=== PATIENT | female | born 1950 | race Caucasian/White ===

== ENCOUNTER 2022-12-08 18:04 | Emergency (ER) | payer MEDICARE, OTHER, SELFPAY ==
[2022-12-08 18:06] VITALS: BP 218/69; PULSE 63; RESP 14; TEMP 36.3; O2SAT 100; BMI 31.8
--- NOTE | 2022-12-08 18:39 | EX.ED.UPPERE ---
HPI History of Present Illness Chief Complaint: Laceration Informant: patient Narrative Narrative: [id number] female presents with mandolin injury to the fourth and fifth digits right hand. On baby aspirin. Tetanus at 9 years. Bleeding controlled with pressure. No other injuries. Tetanus Immunization: >[address] [facility] Medical History (Updated 12/08/22 @ 20:[address] Caleb Mercer, DO) Diabetes HTN (hypertension) Hyperlipemia Home Medications albuterol sulfate 90 mcg/actuation aerosol inhaler (Ventolin HFA) 2 puff inhalation Q6H PRN PRN Wheezing 12/02/13 [History Last Taken 12/02/13] aspirin 81 mg chewable tablet 162 mg PO DAILY 12/02/13 [History Last Taken 01/09/17] atorvastatin 20 mg tablet 80 mg PO QHS 12/02/13 [History Last Taken 06/29/16] calcipotriene-betamethasone 0.005 %-0.064 % topical suspension (Taclonex) 1 applic TP PRN PRN Itching 12/02/13 [History Last Taken Unknown] clobetasol-emollient 0.05 % topical cream 1 applic TP PRN PRN Itching 12/02/13 [History Last Taken Unknown] esomeprazole magnesium 40 mg capsule,delayed release (Nexium) 40 mg PO DAILY 12/02/13 [History Last Taken 01/09/17] loratadine 10 mg tablet (Allergy Relief (loratadine)) 10 mg PO DAILY 12/02/13 [History Last Taken 12/03/13] metoprolol tartrate 25 mg tablet 25 mg PO BID 12/02/13 [History Last Taken 01/09/17] nitroglycerin 0.4 mg sublingual tablet 0.4 mg sublingual Q5M PRN Chest Pain 12/02/13 [History Last Taken Unknown] tolterodine 4 mg capsule,extended release 24 hr 4 mg PO DAILY 12/02/13 [History Last Taken 12/02/13] alendronate 70 mg tablet 70 mg PO ESPITIA 06/30/16 [History Last Taken Unknown] calcium carbonate 500 mg-vitamin D3 10 mcg (400 unit) chewable tablet (Calcium 500 + D) 1 ea PO TID 06/30/16 [History Last Taken Unknown] ramipril 2.5 mg capsule 2.5 mg PO QHS 06/30/16 [History Last Taken 06/30/16] cholecalciferol (vitamin D3) 1,250 mcg (50,000 unit) capsule 50,000 unit PO UD 08/18/16 [History Last Taken Unknown] metformin 750 mg tablet,extended release 24 hr 1,500 mg PO DAILY 08/18/16 [History Last Taken Unknown] nystatin 100,000 unit/gram topical ointment 1 applic topical BID 01/06/17 [History Last Taken Unknown] Allergy/AdvReac Type Severity Reaction Status Date / Time erythromycin base Allergy Abd Verified 12/08/22 18:06 [Erythromycin Base] cramps/diarrhea lisinopril Allergy Other Verified 12/08/22 18:06 minocycline HCl Allergy Other Verified 12/08/22 18:06 [From Minocin] naproxen sodium [From Aleve] Allergy Rash Verified 12/08/22 18:06 Penicillins Allergy Rash Verified 12/08/22 18:06 Sulfa (Sulfonamide Allergy Other Verified 12/08/22 18:06 Antibiotics) Social History Smoking Status: Former smoker ROS ROS ED Constitutional Constitutional ED: Denies chills, fever(s) or sweats Eyes Eyes: Denies change in vision ENT ENT ED: Denies dysphagia or sore throat Cardiovascular Cardiovascular: Denies chest pain, leg edema, palpitations or racing heartbeat Respiratory/Chest Respiratory/Chest: Denies cough, dyspnea or dyspnea on exertion Gastrointestinal Gastrointestinal: Denies abdominal pain, diarrhea, nausea or vomiting Genitourinary Genitourinary ED: Denies dysuria, hematuria or urinary frequency Musculoskeletal Musculoskeletal: Denies back pain, extremity pain or neck pain Integumentary Reports other Details: Right fourth and fifth digit injury ; Denies rash Neurologic Neurologic: Denies headache(s), paresthesias or weakness EXAM Physical Exam Const Vital Signs: 12/08/22 18:06 Temperature 97.3 F L Temperature Source Temporal Pulse Rate 63 Respiratory Rate 14 Blood Pressure 218/69 H Blood Pressure Mean 118 Pulse Ox 100 Oxygen Delivery Method Room Air Positive well nourished and well developed General Appearance ED: well developed and NAD HEENT Reports moist mucous membranes normocephalic and atraumatic Eyes PERRL, EOMs intact bilaterally and conjunctivae normal General Eye ED: Yes normal appearance of both eyes Neck no lymphadenopathy and supple General: Negative for tenderness Chest Wall Chest: Negative for tenderness Resp normal respiratory effort and normal air movement Effort and Inspection: symmetric chest movement; Negative for respiratory distress Cardio regular rate, regular rhythm and no murmurs Peripheral Pulses: pulses 2+ throughout GI normal to inspection, nondistended, normoactive bowel sounds and non-tender Palpation: Negative for guarding or rebound tenderness present Back/Spine no CVA tenderness and no thoracic nor lumbar tenderness Extremity Extremity Narrative: Right hand: Fourth digit: Slice avulsion dorsal aspect and ulnar aspect of the distal phalanx with partial nail avulsion 0.5 cm, no active bleeding. There is no active bleeding. Fifth digit: Slice avulsion of the distal ulnar aspect distal phalanx approximately 1.5 cm, bleeding controlled with pressure. General Extremety ED: Negative for edema or tenderness General Extremity: Negative for edema Neuro oriented x3 and no sensory deficits noted Sensorium / Orientation: awake and alert Skin no rashes or lesions noted and no wounds MDM MDM MDM Narrative Medical decision making narrative: Patient presenting with a mandolin slicer injury of the fourth and fifth digit. Differential avulsion/injury, there is no bony exposures for concerns for bony fractures. Injury to the nail and nailbed. Tetanus updated. To help with bleeding, silver nitrate cauterization the fifth digit. Wound care discussed. Outpatient follow-up. Blood pressure is elevated likely secondary to pain initially. Recheck slightly improved she is due for her nighttime medications. No clinical hypertensive emergency concerns. She will monitor her blood pressure she will follow-up with her PCP. Return precautions. All questions were answered. Procedure note: Verbal consent. LET was placed over the wound to help with analgesia and hemostasis. Upon removal there is still bleeding of the fifth digit, rubber turnicot was placed, silver nitrate was used to help with cauterization of the fifth digit. Hemostasis controlled turnicot removed. Ointment dressing was placed over the fourth and fifth digits. Patient tolerated procedure well. Discharge Plan Triage Chief Complaint: Laceration ED Provider: Caleb Mercer Dx/Rx/DC Orders Clinical Impression: Avulsion of skin of finger, Tetanus toxoid vaccination administered at current visit, Elevated blood pressure reading in office with diagnosis of hypertension Instructions: ED Skin Avulsion, ED Wound Care Prescriptions: No Action atorvastatin 20 MG tablet 80 mg PO QHS Label Comments: cholesterol tolterodine 4 MG Cap.Sa 4 mg PO DAILY Label Comments: incontinence esomeprazole magnesium [Nexium] 40 MG capsule 40 mg PO DAILY Label Comments: acid reflux nitroglycerin 0.4 MG tablet 0.4 mg sublingual Q5M PRN (Reason: Chest Pain) Label Comments: chest pain aspirin 81 MG Tab.Chew 162 mg PO DAILY Label Comments: heart health albuterol sulfate [Ventolin HFA] 1 INHALER inhaler 2 puff inhalation Q6H PRN PRN (Reason: Wheezing) Label Comments: breathing loratadine [Allergy Relief (loratadine)] 10 MG tablet 10 mg PO DAILY Label Comments: seasonal allergies clobetasol-emollient 30 GM Cream..G. 1 applic TP PRN PRN (Reason: Itching) Label Comments: itching metoprolol tartrate 25 MG tablet 25 mg PO BID Label Comments: blood pressure calcipotriene-betamethasone [Taclonex] 60 GM Suspension 1 applic TP PRN PRN (Reason: Itching) Label Comments: psoriasis alendronate 70 MG tablet 70 mg PO ESPITIA Label Comments: bone strength calcium carbonate-vitamin D3 [Calcium 500 + D] 1 EACH Tab.Chew 1 ea PO TID Label Comments: calcium supplement ramipril 2.5 MG capsule 2.5 mg PO QHS Label Comments: blood pressure metformin 750 MG Tab.Er.24h 1,500 mg PO DAILY Label Comments: diabetes cholecalciferol (vitamin D3) 50,000 UNIT capsule 50,000 unit PO UD Label Comments: vitamin D supplement nystatin 1 APPLIC Tube 1 applic topical BID Primary Care Provider: Kenneth Mcgovern Referrals: Kenneth Mcgovern MD [Primary Care Provider] - 3-5 Days Activity Restrictions/Additional Instructions: Silver nitrate cauterization to your pinky finger. Dressing care as discussed. Follow-up with your doctor for reevaluation. Disposition Disposition: Home, Self Care Discharge Date/Time: 12/08/22 20:29
[2022-12-08] MEDS: Silver Nitrate (BKC) 1 EACH TOPICAL (19:07)
[2022-12-08] MEDS: Lidocaine/Epi/Tetracaine 50 ML 1 APPLIC TOPICAL (19:08)
[2022-12-08] MEDS: Diphth,Pertuss(Acell),Tet Vac 0.5 ML Vial IM (19:08)
== END 2022-12-08 20:29 | disposition home or self-care (01) ==
PROVIDERS: Emergency Provider Emergency Medicine; PCP Family Medicine; Visit Provider Emergency Medicine
DX: S61.314A Laceration without foreign body of right ring finger with damage to nail, initial encounter (principal); E11.9 Type 2 diabetes mellitus without complications; S61.216A Laceration without foreign body of right little finger without damage to nail, initial encounter; W26.8XXA Contact with other sharp object(s), not elsewhere classified, initial encounter; I10 Essential (primary) hypertension; E78.5 Hyperlipidemia, unspecified; Z87.891 Personal history of nicotine dependence; Z23 Encounter for immunization
CPT/HCPCS: 90715; 96372; 99283

== ENCOUNTER 2022-12-16 12:09 | Emergency (ER) | payer MEDICARE, OTHER, SELFPAY ==
[2022-12-16 12:12] VITALS: BP 199/81; PULSE 71; RESP 18; TEMP 36.4; O2SAT 97; BMI 31.8
--- NOTE | 2022-12-16 12:34 | RAD_ITS ---
STUDY: X-RAY - RIGHT HAND, ATTENTION FIFTH FINGER REASON FOR EXAM: Female, 72 years old. Infection TECHNIQUE: 3 view(s) of the finger were obtained. COMPARISON: None. FINDINGS: Normal metacarpal head. Normal metacarpophalangeal joint. Normal proximal phalanx. Normal middle phalanx. Normal distal phalanx. Normal proximal interphalangeal joint. Normal distal interphalangeal joint. Soft tissue laceration overlying the tuft of the distal phalanx of the fifth digit. There is a 6.1 mm x 1.7 mm irregular radiopacity within the soft tissues overlying the distal phalanx. This may represent a foreign body. Clinical correlation recommended. RAD/Finger(s) Min 2 Views IMPRESSION: Soft tissue laceration overlying the distal aspect of the distal phalanx of the fifth digit with questionable radiopaque foreign body as described. Electronically Signed: Bebeto Jarvis MD at 13:08 EST ,
--- NOTE | 2022-12-16 12:37 | EX.ED.DYSGE1 ---
HPI History of Present Illness Chief Complaint: Wound Check Narrative Narrative: Patient presents for wound check to the right fifth finger. On the she was seen after slicing her fifth and fourth fingers on a mandolin. The fifth finger was cauterized with silver nitrate. Patient states she was seen by her PCP earlier this week and started on clindamycin. She saw her PCP again today who was concerned that it looked worse and she needed to come to the emergency room. Patient does report some increased redness. She is not having any drainage from the wound. She is using antibiotic ointment on the area after she cleanses it daily. [facility] Medical History Diabetes HTN (hypertension) Hyperlipemia Home Medications albuterol sulfate 90 mcg/actuation aerosol inhaler (Ventolin HFA) 2 puff inhalation Q6H PRN PRN Wheezing 12/02/13 [History Last Taken 12/02/13] aspirin 81 mg chewable tablet 162 mg PO DAILY 12/02/13 [History Last Taken 01/09/17] atorvastatin 20 mg tablet 80 mg PO QHS 12/02/13 [History Last Taken 06/29/16] calcipotriene-betamethasone 0.005 %-0.064 % topical suspension (Taclonex) 1 applic TP PRN PRN Itching 12/02/13 [History Last Taken Unknown] clobetasol-emollient 0.05 % topical cream 1 applic TP PRN PRN Itching 12/02/13 [History Last Taken Unknown] esomeprazole magnesium 40 mg capsule,delayed release (Nexium) 40 mg PO DAILY 12/02/13 [History Last Taken 01/09/17] loratadine 10 mg tablet (Allergy Relief (loratadine)) 10 mg PO DAILY 12/02/13 [History Last Taken 12/03/13] metoprolol tartrate 25 mg tablet 25 mg PO BID 12/02/13 [History Last Taken 01/09/17] nitroglycerin 0.4 mg sublingual tablet 0.4 mg sublingual Q5M PRN Chest Pain 12/02/13 [History Last Taken Unknown] tolterodine 4 mg capsule,extended release 24 hr 4 mg PO DAILY 12/02/13 [History Last Taken 12/02/13] alendronate 70 mg tablet 70 mg PO ESPITIA 06/30/16 [History Last Taken Unknown] calcium carbonate 500 mg-vitamin D3 10 mcg (400 unit) chewable tablet (Calcium 500 + D) 1 ea PO TID 06/30/16 [History Last Taken Unknown] ramipril 2.5 mg capsule 2.5 mg PO QHS 06/30/16 [History Last Taken 06/30/16] cholecalciferol (vitamin D3) 1,250 mcg (50,000 unit) capsule 50,000 unit PO UD 08/18/16 [History Last Taken Unknown] metformin 750 mg tablet,extended release 24 hr 1,500 mg PO DAILY 08/18/16 [History Last Taken Unknown] nystatin 100,000 unit/gram topical ointment 1 applic topical BID 01/06/17 [History Last Taken Unknown] Allergy/AdvReac Type Severity Reaction Status Date / Time erythromycin base Allergy Abd Verified 12/16/22 12:13 [Erythromycin Base] cramps/diarrhea lisinopril Allergy Other Verified 12/16/22 12:13 minocycline HCl Allergy Other Verified 12/16/22 12:13 [From Minocin] naproxen sodium [From Aleve] Allergy Rash Verified 12/16/22 12:13 Penicillins Allergy Rash Verified 12/16/22 12:13 Sulfa (Sulfonamide Allergy Other Verified 12/16/22 12:13 Antibiotics) Surgical History (Updated 12/16/22 @ 12:37 by Shanti Thibodeaux) History of coronary artery stent placement History of endarterectomy Social History Smoking Status: Former smoker ROS ROS ED Constitutional Constitutional ED: Denies chills or fever(s) Eyes Eyes: Denies change in vision or discharge from eye(s) ENT ENT ED: Denies discharge from eye(s), rhinorrhea or sore throat Cardiovascular Cardiovascular: Denies chest pain or palpitations Respiratory/Chest Respiratory/Chest: Denies cough or dyspnea Gastrointestinal Gastrointestinal: Denies abdominal pain, diarrhea, nausea or vomiting Genitourinary Genitourinary ED: Denies dysuria Musculoskeletal Musculoskeletal: Reports extremity pain; Denies back pain Integumentary Reports other Details: Right fifth finger wound ; Denies Abrasions or rash Neurologic Neurologic: Denies headache(s) or weakness Psychiatric Psychiatric: Denies anxiety or depression Allergic/Immunologic Allergic/Immunologic ED: Denies lip swelling or urticaria EXAM Physical Exam Const Vital Signs: 12/16/22 12:12 Temperature 97.5 F L Temperature Source Temporal Pulse Rate 71 Respiratory Rate 18 Blood Pressure 199/81 H Blood Pressure Mean 120 Pulse Ox 97 Oxygen Delivery Method Room Air Positive well nourished and well developed General Appearance ED: well developed HEENT Reports normocephalic and head/scalp atraumatic Eyes PERRL and EOMs intact bilaterally Neck supple Chest Wall inspection of chest normal and palpation of chest normal Resp normal respiratory effort and clear to auscultation bilaterally Cardio regular rate and regular rhythm GI normal to inspection, nondistended, normoactive bowel sounds Palpation: soft Back/Spine no CVA tenderness Extremity Extremity Narrative: Eschar noted over the distal aspect of the right fifth finger. Minimal erythema. No tenderness over the pulp of the finger. Full range of motion without difficulty. Neuro oriented x3 and no sensory deficits noted Sensorium / Orientation: alert Motor Exam: strength 5/5 throughout Psych mental status grossly normal MDM MDM MDM Narrative Medical decision making narrative: Right hand x-ray obtained to evaluate for any bone abnormality or fluid collection. Labwork obtained along with inflammatory markers to look for signs of infection. Lab Data Attestation: I reviewed the patient's lab results. Labs: Laboratory Results - last 24 hr 12/16/22 12/16/22 13:20 13:20 WBC 9.7 RBC 4.16 L Hgb 11.5 L Hct 36.6 L MCV 88.0 MCH 27.6 MCHC 31.4 L RDW Std Deviation 49.4 H RDW Coeff of Yonny 15.4 H Plt Count 284 MPV 9.4 Immature Gran % (Auto) 0.300 Neut % (Auto) 64.3 Lymph % (Auto) 22.7 Millard % (Auto) 6.3 Eos % (Auto) 4.8 Baso % (Auto) 1.6 H Absolute Neuts (auto) 6.2 Absolute Lymphs (auto) 2.19 Nucleated RBC % 0 ESR 9 Sodium 137 Potassium 4.0 Chloride 99 Carbon Dioxide 33.0 H Anion Gap 5 BUN 20 H Creatinine 0.76 Estim Creat Clear Calc 45.09 Est GFR (MDRD) Af Amer 96 Est GFR (MDRD) Non-Af 80 BUN/Creatinine Ratio 26.4 H Glucose 103 Calcium 9.9 C-React Prot Ext Range < 2.90 Radiography Diagnostic Testing: Clinical Impression(s) from Imaging Studies Finger X-Ray 12/16/22 12:34 IMPRESSION: Soft tissue laceration overlying the distal aspect of the distal phalanx of the fifth digit with questionable radiopaque foreign body as described. Electronically Signed: Bebeto Jarvis MD at 13:08 EST , Treatment and Re-Evaluation Narrative: CBC is normal with no left shift. ESR and sed rate are both normal. X-ray per my interpretation shows no acute bony abnormalities. No fluid collection. Wound is cleansed and dressed. She is to continue her antibiotics. Discharge Plan Triage Chief Complaint: Wound Check Other Complaint: Upper Extremity Injury ED Provider: Meredith Mahajan Dx/Rx/DC Orders Clinical Impression: Visit for wound check Instructions: ED Wound Care Prescriptions: No Action atorvastatin 20 MG tablet 80 mg PO QHS Label Comments: cholesterol tolterodine 4 MG Cap.Sa 4 mg PO DAILY Label Comments: incontinence esomeprazole magnesium [Nexium] 40 MG capsule 40 mg PO DAILY Label Comments: acid reflux nitroglycerin 0.4 MG tablet 0.4 mg sublingual Q5M PRN (Reason: Chest Pain) Label Comments: chest pain aspirin 81 MG Tab.Chew 162 mg PO DAILY Label Comments: heart health albuterol sulfate [Ventolin HFA] 1 INHALER inhaler 2 puff inhalation Q6H PRN PRN (Reason: Wheezing) Label Comments: breathing loratadine [Allergy Relief (loratadine)] 10 MG tablet 10 mg PO DAILY Label Comments: seasonal allergies clobetasol-emollient 30 GM Cream..G. 1 applic TP PRN PRN (Reason: Itching) Label Comments: itching metoprolol tartrate 25 MG tablet 25 mg PO BID Label Comments: blood pressure calcipotriene-betamethasone [Taclonex] 60 GM Suspension 1 applic TP PRN PRN (Reason: Itching) Label Comments: psoriasis alendronate 70 MG tablet 70 mg PO ESPITIA Label Comments: bone strength calcium carbonate-vitamin D3 [Calcium 500 + D] 1 EACH Tab.Chew 1 ea PO TID Label Comments: calcium supplement ramipril 2.5 MG capsule 2.5 mg PO QHS Label Comments: blood pressure metformin 750 MG Tab.Er.24h 1,500 mg PO DAILY Label Comments: diabetes cholecalciferol (vitamin D3) 50,000 UNIT capsule 50,000 unit PO UD Label Comments: vitamin D supplement nystatin 1 APPLIC Tube 1 applic topical BID Primary Care Provider: Kenneth Mcgovern Referrals: Kenneth Mcgovern MD [Primary Care Provider] - 1-2 Weeks Disposition Disposition: Home, Self Care
[2022-12-16 13:41] LABS: Erythrocyte Sedimentation Rate 9 mm/hr (0-30)
[2022-12-16 13:42] LABS: Absolute Lymphocyte Count 2.19 X10^3/uL (0.83-4.51); Absolute Neutrophil Count 6.2 X10^3/uL (2.0-7.7); Basophil# 0.15 X10^3/uL; Basophil% 1.6 % (0-1); Eosinophil# 0.46 X10^3/uL; Eosinophils% 4.8 % (0-5); Hematocrit 36.6 % (37-47); Hemoglobin 11.5 g/dL (12.0-15.0); Lymphocyte # 2.19 X10^3/ul (0.83-4.51); Lymphocyte % 22.7 % (19-41); Mean Corp Hgb Conc 31.4 g/dL (32-36); Mean Corpuscular Hgb 27.6 pg (27.0-32.0); Mean Platelet Vol. 9.4 fl (6.2-12.0); Monocyte# 0.61 X10^3/uL; Monocyte% 6.3 % (0-10); NRBC Flagged by Analyzer 0 % (0-5); Neutrophil # 6.21 X10^3/uL (2.7-7.7); Neutrophil % 64.3 % (47-70); Platelet Count 284 K/mm3 (150-450); RBC Distribution Width CV 15.4 % (11.6-14.6); RBC Distribution Width SD 49.4 fl (35.1-43.9); Red Blood Count 4.16 M/mm3 (4.2-5.4); White Blood Count 9.7 K/mm3 (4.4-11.0)
[2022-12-16 13:52] LABS: Anion Gap 5 (5-15); BUN 20 mg/dL (7-18); BUN/Creat Ratio 26.4 RATIO (10-20); CRP < 2.90 mg/L (0.0-3.0); Calcium,Total 9.9 mg/dL (8.5-10.1); Chloride 99 mmol/L (98-107); Creatinine, Serum 0.76 mg/dL (0.55-1.02); EST Glomerular Filtration Rate 80 mL/min (>60); Est Glom Filt Rate - Afr Amer 96 mL/min (>60); Estimated Creatinine Clearance 45.09 ml/min; Glucose 103 mg/dL (74-106); Sodium Level 137 mmol/L (136-145)
[2022-12-16 15:07] VITALS: RESP 16
== END 2022-12-16 15:07 | disposition home or self-care (01) ==
PROVIDERS: Emergency Provider Emergency Medicine; PCP Family Medicine; Visit Provider Emergency Medicine
DX: Z48.00 Encounter for change or removal of nonsurgical wound dressing (principal); E11.9 Type 2 diabetes mellitus without complications; I10 Essential (primary) hypertension; Z79.82 Long term (current) use of aspirin; Z79.84 Long term (current) use of oral hypoglycemic drugs; Z79.899 Other long term (current) drug therapy; Z87.891 Personal history of nicotine dependence
CPT/HCPCS: 73140; 80048; 85025; 85652; 86140; 99283; A4216